=== PATIENT | female | born 1990 | race Caucasian/White ===

== ENCOUNTER 2023-02-23 20:37 | Outpatient (REF) | payer MEDICAID, SELFPAY ==
[2023-03-02 08:13] LABS: Age Gdln ACOG Testing Note (.); HPV Aptima Negative (Negative); IGP, Aptima HPV, rfx 16/18,45 Note (.)
== END 2023-02-23 20:38 | disposition home or self-care (01) ==
LOC: LAB 20:37
PROVIDERS: Visit Provider Obstetrics & Gynecology
DX: Z12.4 Encounter for screening for malignant neoplasm of cervix (principal)
CPT/HCPCS: 87624; G0145

== ENCOUNTER 2023-03-01 13:39 | Outpatient (OUT) | payer MEDICAID, SELFPAY ==
--- NOTE | 2023-03-01 13:50 | US_ITS ---
The [address] [address] Patient Name: BRIAN WHITE MRN: [id number] date: 1990 Sex: F Assigned Patient Location: US Current Patient Location: US Accession/Order Number: [id number] Exam Date: 03/01/2023 14:00 Report Date: 03/01/2023 17:45 At the request of: FLYNN BURDEN Procedure: US pelvis transvaginal EXAMINATION: US pelvis transvaginal HISTORY: Pelvic Pain R10.2, Menorrhagia N92.0 COMPARISON: No relevant comparison available. 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 Uterus is normal in size measuring 9.3 x 5.5 x 3.8 cm. The endometrium measures 3.9 mm, normal. Multiple echogenic foci in the cervix, nonspecific The right ovary is normal measuring 2.5 x 1.4 x 1.9 cm. Normal color and Doppler flow The left ovary is normal measuring 2.0 x 1.2 x 1.4 cm. Normal color and Doppler flow No fluid US/US pelvis transvaginal IMPRESSION: Bicornuate uterus Cervical calcifications, nonspecific Electronically authenticated by: LILIA WHITE Date: 03/01/2023 17:45
[2023-03-01 15:06] LABS: Basophils Percent Auto 0.4 % (0.2-2.0); Eosinophils Absolute Auto 0.2 10^3/uL (0.0-0.7); Eosinophils Percent Auto 3.1 % (0.9-7.0); Immature Granulocytes Abs Auto 0.03 10^3/uL (0.00-0.03); Immature Granulocytes Pct Auto 0.4 % (0.0-0.5); Lymphocytes Absolute Auto 1.7 10^3/uL (1.2-3.8); Lymphocytes Percent Auto 24.3 % (20.5-60.0); Mean Corpuscular HGB Conc 33.3 g/dL (29.9-35.2); Mean Corpuscular Hemoglobin 26.9 pg (26.7-34.0); Mean Corpuscular Volume 80.7 fL (81.0-99.0); Mean Platelet Volume 10.1 fL (9.5-13.5); Monocytes Absolute Auto 0.5 10^3/uL (0.3-0.8); Monocytes Percent Auto 7.5 % (1.7-12.0); Neutrophils Absolute Auto 4.6 10^3/uL (1.4-6.5); Neutrophils Percent Auto 64.3 % (43.0-75.0); Platelet Count 268 10^3/uL (150-450); Red Blood Count 4.46 10^6/uL (4.20-5.40); Red Cell Distribution Width 15.2 % (11.0-15.0); White Blood Count 7.1 10^3/uL (4.0-11.0)
[2023-03-01 15:21] LABS: INR 1.03; Partial Thromboplastin Time 27.4 sec (22.3-36.2); Prothrombin Time 10.9 sec (9.0-11.6)
[2023-03-01 15:37] LABS: HCG Quantitative <1 mIU/mL; Thyroid Stimulating Hormone 1.705 uIU/mL (0.358-3.740)
[2023-03-01 16:11] LABS: Free T4 1.18 ng/dL (0.76-1.46)
== END 2023-03-01 13:40 | disposition home or self-care (01) ==
PROVIDERS: Visit Provider Obstetrics & Gynecology
DX: N92.0 Excessive and frequent menstruation with regular cycle (principal); R10.2 Pelvic and perineal pain
CPT/HCPCS: 36415; 76830; 84439; 84443; 84702; 85025; 85610; 85730

== ENCOUNTER 2023-06-02 12:35 | Outpatient (OUT) | payer MEDICAID, SELFPAY ==
[2023-06-06 11:12] LABS: Free Testosterone(Direct) 1.7 pg/mL (0.0-4.2); Testosterone 20 ng/dL (13-71)
== END 2023-06-02 12:36 | disposition home or self-care (01) ==
LOC: LAB 12:39
DX: L70.0 Acne vulgaris (principal); L68.0 Hirsutism
CPT/HCPCS: 36415; 82627; 84402; 84403

== ENCOUNTER 2023-06-02 12:54 | Outpatient (OUT) | payer MEDICAID, SELFPAY ==
--- NOTE | 2023-06-02 13:01 | US_ITS ---
The [address] [address] Patient Name: BRIAN WHITE MRN: [id number] date: 1990 Sex: F Assigned Patient Location: US Current Patient Location: US Accession/Order Number: [id number] Exam Date: 06/02/2023 13:02 Report Date: 06/02/2023 13:51 At the request of: FLYNN BURDEN Procedure: US pelvis w/ transvaginal EXAMINATION: US pelvis w/ transvaginal HISTORY: Pelvic Pain In Female R10.2 COMPARISON: 03/01/2023 FINDINGS: The uterus is anteverted. The uterus measures 8.8 x 3.9 x 6.0 cm. Contour deformity consistent with a bicornuate uterus. The endometrium measures 6.7 mm, normal. Clusters of echogenic foci in the cervix, nonspecific calcifications The right ovary is normal measuring 4.3 x 2.2 x 2.3 cm Left ovary is normal measuring 3.9 x 2.2 x 2.1 cm. No focal hernia is identified in the region of the patient's right pelvic pain US/US pelvis w/ transvaginal IMPRESSION: No hernia is observed Electronically authenticated by: LILIA WHITE Date: 06/02/2023 13:51
== END 2023-06-02 12:55 | disposition home or self-care (01) ==
LOC: US 12:54
PROVIDERS: Visit Provider Obstetrics & Gynecology
DX: L70.0 Acne vulgaris (principal); L68.0 Hirsutism; R10.2 Pelvic and perineal pain
CPT/HCPCS: 36415; 76830; 76856; 82627; 84402; 84403